=== PATIENT | female | born 1960 | race Caucasian/White ===

== ENCOUNTER 2016-04-08 09:49 | Emergency (ER) | payer OTHER ==
[~2016-04-08] VITALS: Ht 160 cm; Wt 97.2 kg
[2016-04-08 10:05] LABS: HEMATOCRIT 39.8 % (36.0-46.0); MCH 29.3 PG (29.0-34.0); MCHC 33.9 G/DL (30.0-36.0); MCV 86.3 FL (83-99); MEAN PLAT.VOLUME 10.1 uM^3 (9.5-12.4); PLATELET COUNT 221 K/uL (156-360); RBC DIS.WIDTH-CV 12.4 % (11.8-14.6); RBC DIS.WIDTH-SD 38.4 % (39-53); RED BLOOD COUNT 4.61 M/uL (3.80-5.20); WHITE BLOOD COUNT 7.6 K/uL (4.1-10.2)
[2016-04-08 10:15] LABS: CHLORIDE 107 mEq/L (99-109); SODIUM 139 mEq/L (136-147)
[2016-04-08 10:17] LABS: GLUCOSE 147 mg/dL (70-99)
[2016-04-08 10:19] LABS: ANION GAP 15 MEQ/L (2-14)
[2016-04-08 10:21] LABS: GFR ESTIMATE (CALCULATED) > 59 mL/min/
[2016-04-08 10:22] LABS: UREA NITROGEN (BUN) 14 mg/dL (9-23)
[2016-04-08 10:24] LABS: ADD MIUA? YES; BILIRUBIN NEGATIVE; BLOOD SMALL; COLOR YELLOW ((YELLOW)); GLUCOSE (STRIP) NEGATIVE; KETONES NEGATIVE; LEUKOCYTES NEGATIVE; NITRITE NEGATIVE; PH, URINE 5.5 (5-8); PROTEIN (STRIP) NEGATIVE; SPECIFIC GRAVITY 1.025 (1.000-1.030); UROBILINOGEN 0.2 MG/DL (0.2-1.0)
[2016-04-08 10:37] LABS: BACTERIA 2+; CASTS NONE SEEN /LPF; CRYSTALS NONE SEEN; EPITHELIAL CELLS 2+; MUCUS NONE SEEN; RED BLOOD CELLS 0-5 /HPF (0-5); UCUL ADDED? NO; WHITE BLOOD CELLS 0-5 /HPF (0-5)
[2016-04-08] MEDS ORDERED: PERCOCET 5/31 TABLET PO (12:46)
[2016-04-08] MEDS ORDERED: ZOFRAN ODT4 MG PO (12:46)
[2016-04-08] MEDS ORDERED: FLOMAX0.4 MG PO (12:46)
[2016-04-08 13:00] VITALS: BP 150/85
[2016-04-11] MEDS ORDERED: DAILY MULTIPLE1 EACH PO (08:43)
[2016-04-11] MEDS ORDERED: GEMFIBROZIL600 MG PO (08:43)
[2016-04-11] MEDS ORDERED: ESTRADIOL0.5 MG PO (08:43)
[2016-04-11] MEDS ORDERED: FIBER GUMMIES1 EACH PO (08:44)
== END 2016-04-08 13:07 | disposition home or self-care (01) ==
LOC: EME 09:49
DX: N20.1 Calculus of ureter (principal)
CPT/HCPCS: 74176; 80048; 81003; 85027; 99281; 99285; J1885; J2270; J2405; J7030

== ENCOUNTER 2016-04-11 09:42 | Day surgery (SDC) | payer OTHER ==
[~2016-04-11] VITALS: Ht 160 cm; Wt 97.1 kg
[~2016-04-11 09:42] MED LIST: DAILY MULTIPLE1 EACH PO; ESTRADIOL0.5 MG PO; FIBER GUMMIES1 EACH PO; FLOMAX0.4 MG PO; GEMFIBROZIL600 MG PO; PERCOCET 5/31 TABLET PO; ZOFRAN ODT4 MG PO
[2016-04-11 10:29] VITALS: BP 135/86
[2016-04-11 14:36] VITALS: BP 134/73
[2016-04-11 15:35] VITALS: BP 135/71
== END 2016-04-11 16:06 | disposition home or self-care (01) ==
LOC: SDC 09:42
DX: N20.1 Calculus of ureter (principal)
CPT/HCPCS: C1876; J0330; J0690; J1100; J1580; J2405; J2765; J3010

== ENCOUNTER 2017-09-21 05:18 | Day surgery (SDC) | payer OTHER ==
[~2017-09-21] VITALS: Ht 160 cm; Wt 97.9 kg
[~2017-09-21 05:18] MED LIST changes: +NEURONTIN300 MG PO
[2017-09-21 06:04] VITALS: BP 134/76
[2017-09-21] MEDS ORDERED: FLEXERIL5 MG PO (10:37)
[2017-09-21] MEDS ORDERED: OXYCODONE-APAP1 EACH PO (10:37)
[2017-09-21 11:51] VITALS: BP 135/71
[2017-09-21 12:42] VITALS: BP 135/71
[2017-09-21 16:00] VITALS: BP 140/76
[2017-09-21 19:25] VITALS: BP 152/85
[2017-09-21 23:43] VITALS: BP 139/82
[2017-09-22 03:07] VITALS: BP 137/75
[2017-09-22 07:20] VITALS: BP 134/70
== END 2017-09-22 12:59 | disposition home or self-care (01) ==
LOC: SDC 05:18 → 3EAST 10:26 → 2EAST 10:26 → ENRESERV 10:35 → 2SOUTH 10:47 → ENRESERV 11:08 → 3EAST 11:23
PROVIDERS: Neurological Surgery
PROC: 0RG20K0 Fusion of 2 or more Cervical Vertebral Joints with Nonautologous Tissue Substitute, Anterior Approach, Anterior Column, Open Approach (ICD-10-PCS; principal; 2017-09-21)
PROC: 0RB30ZZ Excision of Cervical Vertebral Disc, Open Approach (ICD-10-PCS; principal; 2017-09-21)
PROC: 0RG20A0 Fusion of 2 or more Cervical Vertebral Joints with Interbody Fusion Device, Anterior Approach, Anterior Column, Open Approach (ICD-10-PCS; principal; 2017-09-21)
DX: M47.22 Other spondylosis with radiculopathy, cervical region (principal); E78.5 Hyperlipidemia, unspecified; F41.9 Anxiety disorder, unspecified
CPT/HCPCS: 72020; 76000; 82948; C1713; G0378; J0131; J0330; J0690; J1100; J1170; J2250; J2405; J2710; J3010; J3480; J7120; J7643; Q0175